=== PATIENT | female | born 1995 | race Hispanic/Latino ===

== ENCOUNTER 2017-03-31 21:18 | Emergency (ER) | payer SELFPAY ==
[2017-03-31] MEDS ORDERED: predniSONE 20 MG TAB ONE (22:13)
== END 2017-03-31 23:48 | disposition home or self-care (01) ==
LOC: ERS 21:18
DX: J45.901 Unspecified asthma with (acute) exacerbation (principal)
CPT/HCPCS: 94640; J7506; J7620

== ENCOUNTER 2017-04-20 16:50 | Emergency (ER) | payer SELFPAY | END 2017-04-20 17:21 | disposition left against medical advice (07) | LOC: ERS 16:50 | DX: Z53.21 Procedure and treatment not carried out due to patient leaving prior to being seen by health care provider (principal) ==

== ENCOUNTER 2017-05-04 10:35 | Emergency (ER) | payer OTHER, SELFPAY ==
--- NOTE | 2017-05-04 11:07 | RAD ---
TWO VIEW CHEST: Comparison: 04-28-15 Clinical history: Cough. FINDINGS: There is no consolidation, effusion, or pneumothorax. Cardiac silhouette is normal in size. Osseous s tructures are intact. IMPRESSION: No focal consolidation. POS: [facility]
[2017-05-04] MEDS ORDERED: predniSONE 20 MG TAB ONE (14:19)
== END 2017-05-04 15:40 | disposition home or self-care (01) ==
LOC: ERS 10:35
DX: R06.2 Wheezing (principal); R05 Cough; H92.09 Otalgia, unspecified ear; Z79.899 Other long term (current) drug therapy
CPT/HCPCS: 71046; 94640; J7506; J7620

== ENCOUNTER 2018-08-08 01:13 | Emergency (ER) | payer SELFPAY | END 2018-08-08 03:04 | disposition home or self-care (01) | LOC: ERS 01:13 | DX: G56.03 Carpal tunnel syndrome, bilateral upper limbs (principal) | CPT/HCPCS: 99283 ==

== ENCOUNTER 2019-06-27 14:02 | Emergency (ER) | payer BC, SELFPAY | END 2019-06-27 14:36 | disposition home or self-care (01) | LOC: ERS 14:02 | DX: J45.901 Unspecified asthma with (acute) exacerbation (principal); G56.00 Carpal tunnel syndrome, unspecified upper limb | CPT/HCPCS: 99284 ==

== ENCOUNTER 2019-11-06 20:22 | Emergency (ER) | payer BC ==
[2019-11-06 20:59] LABS: Bilirubin Negative (Negative); Blood, Urine Negative (Negative); Clarity Clear (Clear); Glucose, Urine (Dipstick) Normal (Negative); Ketone, Urine Trace mg/dL (Negative); Leukocyte Negative Leu/uL (Negative); Nitrite Negative (Negative); Protein, Urine (Dipstick) Negative (Neg-Trace); Specific Gravity, Urine 1.026 (1.002-1.036); Urobilinogen Normal mg/dL (Less than 2); pH, Urine 5.5 (5.0-9.0)
[2019-11-06 21:00] LABS: Pregnancy Test - Urine (BHCG) POSITIVE (Negative); Pregu Control Background? CLEAR/WHITE (CLR/WHITE); Pregu Control Bar Appear? YES (CONTROL BAR); Specific Gravity 1.026 (1.002-1.036)
[2019-11-06 21:18] LABS: #Basophils 0.1 thou/uL (0.0-0.2); #Eosinphils 0.4 thou/uL (0.0-0.7); #Lymphocytes 2.8 thou/uL (1.20-3.40); #Monocytes 1.3 thou/uL (0.11-0.59); %Basophils 0.5 % (0.0-1.0); %Eosinophils 2.8 % (0.0-10.0); %Lymphocytes 20.8 % (21.0-51.0); %Monocytes 9.3 % (0.0-10.0); %Neutrophils 66.6 % (42.0-75.0); Hemoglobin 12.8 g/dL (12.0-16.0); Mean Corpuscular HGB CONC 33.9 g/dL (32.0-36.0); Mean Corpuscular Volume 82.6 fL (78.0-98.0); Mean Platelet Volume 8.4 fL (7.4-10.4); Platelet Count 256 thou/uL (130-400); RBC Distribution Width 12.9 % (11.5-14.5); Red Blood Cell (RBC) Count 4.55 mill/uL (4.20-5.40); White Blood Cell (WBC) Count 13.5 thou/uL (4.8-10.8)
--- NOTE | 2019-11-06 22:14 | ULT ---
TRANSABDOMINAL AND TRANSVAGINAL PELVIC ULTRASOUND WITH GRAYSCALE, COLOR-FLOW AND SPECTRAL DOPPLER MAYA GING: HISTORY:Pelvic pain, vaginal spotting FINDINGS: Uterus: 8.6 x 4.7 x 6.5cm Right ovary: 2.2 x 4 x 3cm Left ovary: 3.7 x 4 x 2.7 cm A single intrauterine gestational sac is seen with measurements corresponding to an estimated gestati onal age of 5 weeks and 5 days. The crown-rump length measures 0.20 cm, yolk sac diameter is 0.31 cm and the gestational sac diameter measures 0.76 cm. No heart tones are seen. Flow is demonstrated to both ovaries. No adnexal mass or free fluid in the cul-de-sac is identified. IMPRESSION: Single intrauterine gestation of 5 weeks 5 days estimated gestational age and no he art tones. Recommendation: Correlation with serial serum beta hCG levels and follow-up ultrasound is recommended
== END 2019-11-06 21:25 | disposition home or self-care (01) ==
LOC: ERS 20:22
DX: O20.0 Threatened abortion (principal); Z3A.01 Less than 8 weeks gestation of pregnancy
CPT/HCPCS: 36415; 76856; 81003; 81025; 84702; 85025; 86900; 86901

== ENCOUNTER 2020-04-22 21:03 | Emergency (ER) | payer BC, OTHER | END 2020-04-22 22:23 | disposition home or self-care (01) | LOC: ERS 21:03 | DX: O99.513 Diseases of the respiratory system complicating pregnancy, third trimester (principal); J45.901 Unspecified asthma with (acute) exacerbation; Z79.51 Long term (current) use of inhaled steroids | CPT/HCPCS: J7620 ==

== ENCOUNTER 2020-04-23 10:47 | Emergency (ER) | payer OTHER ==
[2020-04-23] MEDS ORDERED: Albuterol 200 PUFF (6.7GM INHALER) ONE (12:12)
--- NOTE | 2020-04-23 12:21 | RAD ---
EXAM: CHEST ONE VIEW HISTORY: Wheezing which started 2 days ago. Symptoms not improving. COMPARISON: 05/04/2017 FINDINGS: The cardiac silhouette and pulmonary vasculature are within normal limits. The lungs are clear. The o sseous structures are intact. No interval change from prior study. IMPRESSION: No acute cardiopulmonary process.
[2020-04-23] MEDS ORDERED: Dexamethasone 4 mg/ml Vial ONE (12:41)
== END 2020-04-23 13:11 | disposition home or self-care (01) ==
LOC: ERS 10:47
DX: J45.901 Unspecified asthma with (acute) exacerbation (principal); Z79.51 Long term (current) use of inhaled steroids
CPT/HCPCS: 71045; J1100; J7620

== ENCOUNTER 2021-03-08 13:35 | Emergency (ER) | payer SELFPAY ==
[2021-03-08] MEDS ORDERED: predniSONE 20 MG TAB ONE (13:52)
== END 2021-03-08 14:10 | disposition home or self-care (01) ==
LOC: ERS 13:35
DX: J45.901 Unspecified asthma with (acute) exacerbation (principal); I10 Essential (primary) hypertension; E28.2 Polycystic ovarian syndrome; Z79.899 Other long term (current) drug therapy; G56.00 Carpal tunnel syndrome, unspecified upper limb
CPT/HCPCS: 93005; J7512

== ENCOUNTER 2025-01-16 00:56 | Emergency (ER) | payer BC ==
[2025-01-16 01:36] LABS: BHCG - Serum Negative (NEGATIVE); Pregs Control Background? CLEAR/WHITE (CLR/WHITE); Pregs Control Bar Appear? YES (CONTROL BAR)
[2025-01-16 01:41] LABS: ALT (SGPT) 20 U/L (Less than 34); AST (SGOT) 20 U/L (11-34); Albumin 3.9 g/dL (3.1-4.5); Alkaline Phosphatase 68 U/L (40-110); Anion Gap 11 mmol/L (10-20); BUN (Urea Nitrogen) 9 mg/dL (7.0-18.7); Bilirubin, Total 0.4 mg/dL (0.3-1.2); Calc. Creatinine Clearance 0 mL/min (70-130); Calcium 8.6 mg/dL (7.8-10.44); Carbon Dioxide 26 mmol/L (22-29); Chloride 108 mmol/L (98-107); Globulin 3.1 g/dL (2.4-3.5); Glucose 102 mg/dL (70-105); Potassium 3.1 mmol/L (3.5-5.1); Sodium 142 mmol/L (136-145)
[2025-01-16 01:43] LABS: #Basophils 0.10 10x3/uL (0.0-0.2); #Eosinophils 0.89 10x3/uL (0.0-0.7); #Monocytes 0.93 10x3/uL (0.11-0.59); #Neutrophils 4.95 10x3/uL (1.40-6.50); %Basophils 0.9 % (0.0-1.0); %Eosinophils 8.2 % (0.0-10.0); %Lymphocytes 36.6 % (21.0-51.0); %Monocytes 8.6 % (0.0-10.0); %Neutrophils 45.5 % (42.0-75.0); Hematocrit 36.4 % (36.0-47.0); Hemoglobin 11.9 g/dL (12.0-16.0); Mean Corpuscular Hemoglobin 23.8 pg (27.0-31.0); Mean Corpuscular Volume 72.9 fL (78.0-98.0); Platelet Count 288 10x3/uL (130-400); Red Blood Cell (RBC) Count 4.99 mill/uL (4.20-5.40); White Blood Cell (WBC) Count 10.87 10x3/uL (4.8-10.8)
[2025-01-16 02:56] LABS: Microcytosis SLIGHT = 6-15 cells HPF (0-5); Platelet Adequacy Comment Platelets Normal; Polychromasia SLIGHT = 2-3 cells HPF (0-2)
== END 2025-01-16 03:51 | disposition home or self-care (01) ==
LOC: ERS 00:56
DX: J44.1 Chronic obstructive pulmonary disease with (acute) exacerbation (principal); Z79.01 Long term (current) use of anticoagulants
CPT/HCPCS: 71045; 80053; 84703; 85025; 96374; J2919